=== PATIENT | male | born 1935 | race Caucasian/White ===

== ENCOUNTER 2020-08-29 13:24 | Observation (INO) | payer MEDICARE, OTHER ==
[~2020-08-29] VITALS: Ht 182.9 cm; Wt 64.6 kg
[~2020-08-29 13:24] MED LIST: ALBU8.5H6 IH; AMIT10TA PO; FINA5TAB4 PO; TIOT18CA IH
--- NOTE | 2020-08-29 13:59 | PHYS DOC ---
Past History Past Medical History: Cancer, COPD, Other Additional Past Medical Histor: LUNG CA STAGE 4 Past Surgical History: Other Additional Past Surgical Histo: HERNIA X 2, HEMORRHOID SURGERY X 2. Alcohol Use: Occasionally General Adult EDM: Chief Complaint: ABDOMINAL PAIN HPI: HPI: Patient is a 85-year-old male coming in for abdominal distention and constipation. Patient states he has not had a bowel movement in for 5 days. Saw his primary care provider for back pain yesterday and had x-rays done. He has multiple previous back injuries was also noted to be constipated. His primary care recommended [id number] laxatives and treatments. He states he has used magnesium citrate, a Fleet enema (that returned clear fluid), and mineral oil. No abd pain, no N/V. Multiple abd surgeries. Review of Systems: Review of Systems: All other systems within normal limits except for as noted in the HPI Allergies: Allergies: Allergies Coded Allergies Type Severity Reaction Last Updated Verified Penicillins Allergy Intermediate 08/29/20 Yes Physical Exam: PE: Constitutional: Well developed, well nourished, no acute distress, non-toxic appearance. [] HENT: Normocephalic, atraumatic, bilateral external ears normal, nose normal. [] Eyes: PERRLA, conjunctiva normal, no discharge. [] Neck: No rigidity, supple, no stridor. [] Cardiovascular: Regular rate and rhythm, brisk cap refill [] Lungs & Thorax: Non labored symmetric respirations, no tachypnea or respiratory distress [] Abdomen: Soft, nondistended, reducible ventral hernia. Skin: Warm, dry, no erythema, no rash. [] Back: Unremarkable Extremities: No deformities, range of motion grossly intact, no lower extremity edema [] Neurologic: Alert and oriented X 3, no focal deficits noted. [] Psychologic: Affect normal, judgement normal, mood normal. [] Current Patient Data: Vital Signs: Vital Signs Date Time Temp Pulse Resp B/P (MAP) Pulse Ox O2 Delivery O2 Flow Rate FiO2 08/29/20 13:43 97.9 96 18 121/93 (102) 93 Room Air EKG: EKG: Sinus rhythm, heart rate 82 bpm, right bundle branch block, no ST elevation depression, no ectopy. Normal axis. [] Radiology/Procedures: Radiology/Procedures: Exam: CT of abdomen and pelvis with contrast INDICATION: Abdominal distention TECHNIQUE: Sequential axial images through the abdomen and pelvis obtained following the administration of 60 mL of Omni 300 IV contrast. Sagittal and coronal reformatted images were reconstructed from the axial data and reviewed. Comparisons: None FINDINGS: Heart size is normal. Visualized lung bases are clear. No pleural effusion. Numerous cystic lesions noted in the liver parenchyma favored represent simple cysts. Spleen, pancreas, gallbladder and adrenals are unremarkable. Kidneys demonstrate symmetric enhancement. No ureteral calculi are identified. There is nonobstructing right renal calculi. There is a simple cyst at the mid left kidney measuring 9.4 cm. Bladder is distended and appears thin-walled. Prostate is not enlarged. Large amount of stool is noted throughout the colon. Small bowel is unremarkable. No free intra-abdominal air or fluid. No obstruction. Abdominal aorta has a normal course and caliber. Abdominal vasculature is patent. No enlarged intra-abdominal lymph nodes are identified. No suspicious osseous lesions or acute fractures. IMPRESSION: Large amount stool noted throughout the colon. Correlate for constipation. [] Heart Score: C/O Chest Pain: No Risk Factors: Risk Factors: DM, Current or recent (<one month) smoker, HTN, HLP, family history of CAD, obesity. Risk Scores: Score 0 - 3: 2.5% MACE over next 6 weeks - Discharge Home Score 4 - 6: 20.3% MACE over next 6 weeks - Admit for Clinical Observation Score 7 - 10: 72.7% MACE over next 6 weeks - Early Invasive Strategies Course & Med Decision Making: Course & Med Decision Making Pertinent Labs and Imaging studies reviewed. (See chart for details) Bladder distention, Navarrete placed at 800 cc out. We will use glycerin suppositories after Navarrete placed, because bladder appeared to be collapsing the rectum. Discussed with patient's primary care provider will admit for bowel cleanout and Navarrete management. Patient agrees to plan. [] Dragon Disclaimer: Dorota Disclaimer: This electronic medical record was generated, in whole or in part, using a voice recognition dictation system. Departure Departure: Impression: Primary Impression: Urinary retention Additional Impression: Constipation due to pain medication Disposition: ADMITTED INPT THIS HOSP Admitting Physician: Arcenio Mosqueda Condition: STABLE Referrals: ARCENIO MOSQUEDA MD (PCP) KIMANI NAVAS MD Aug 29, 2020 13:59
[2020-08-29 14:16] LABS: BASO % 0 % (0-3); EOS # 0.1 x10^3/uL (0.0-0.7); EOS % 1 % (0-3); HEMATOCRIT 34.8 % (39.0-53.0); HEMOGLOBIN 11.7 g/dL (13.0-17.5); LYMPH # 0.6 x10^3/uL (1.0-4.8); LYMPH % 6 % (24-48); MEAN CORPUSCULAR HEMOGLOBIN 34 pg (25-35); MEAN CORPUSCULAR HGB CONC 34 g/dL (31-37); MEAN CORPUSCULAR VOLUME 101 fL (79-100); MONO # 0.4 x10^3/uL (0.0-1.1); MONO % 5 % (0-9); NEUT # 8.3 x10^3uL (1.8-7.7); NEUT % 89 % (31-73); PLATELET COUNT 389 x10^3/uL (140-400); RED BLOOD COUNT 3.44 x10^6/uL (4.30-5.70); RED CELL DISTRIBUTION WIDTH 14.3 % (11.5-14.5); WHITE BLOOD COUNT 9.4 x10^3/uL (4.0-11.0)
[2020-08-29 14:30] LABS: BACTERIA,URINE 0 /HPF (0-FEW); BILIRUBIN,URINE NEG (NEG); CLARITY,URINE CLEAR; COLOR,URINE YELLOW; GLUCOSE,URINE NEG (NEG); HYALINE CASTS, URINE FEW /HPF; NITRITE,URINE NEG (NEG); SQUAMOUS EPITHELIAL CELL,UR OCC /LPF; UROBILINOGEN,URINE 0.2 mg/dL (0.2 mg/dL); WBC,URINE OCC /HPF (0-4)
[2020-08-29 14:43] LABS: ALBUMIN 3.1 g/dL (3.4-5.0); ALBUMIN/GLOBULIN RATIO 0.8 (1.0-1.7); CREATININE 1.5 mg/dL (0.7-1.3); GFR 44.7; MAGNESIUM 2.9 mg/dL (1.8-2.4); PHOSPHORUS 3.5 mg/dL (2.6-4.7); TOTAL BILIRUBIN 0.4 mg/dL (0.2-1.0); TOTAL PROTEIN 7.2 g/dL (6.4-8.2)
[2020-08-29 14:59] LABS: % EOS 1 % (0-5); % LYMPHS 7 % (24-48); % MONOS 4 % (0-10); % MYELOS 1 % (0-0); % SEGS 87 % (35-66); PLT ESTIMATE ADEQUATE (ADEQUATE)
[2020-08-29 15:01] LABS: POTASSIUM 4.9 mmol/L (3.5-5.1)
[2020-08-29] MEDS ORDERED: IOHEXOL 300 MG/ML 75 ML VIAL. IV ONE (15:15)
[2020-08-29] MEDS ORDERED: HALOPERIDOL LACT 5 MG/ML VIAL. IVP ONE (15:15)
[2020-08-29] MEDS ORDERED: diphenhydrAMINE 50 MG/ML VIAL IVP ONE (15:15)
[2020-08-29] MEDS ORDERED: IV NORMAL SALINE 500ML 500 ML IV ONE (15:15)
--- NOTE | 2020-08-29 16:06 | RAD ---
Exam: CT of abdomen and pelvis with contrast INDICATION: Abdominal distention TECHNIQUE: Sequential axial images through the abdomen and pelvis obtained following the administrati on of 60 mL of Omni 300 IV contrast. Sagittal and coronal reformatted images were reconstructed from the axial data and reviewed. Comparisons: None FINDINGS: Heart size is normal. Visualized lung bases are clear. No pleural effusion. Numerous cystic lesions noted in the liver parenchyma favored represent simple cysts. Spleen, pancrea s, gallbladder and adrenals are unremarkable. Kidneys demonstrate symmetric enhancement. No ureteral calculi are identified. There is nonobstructin g right renal calculi. There is a simple cyst at the mid left kidney measuring 9.4 cm. Bladder is distended and appears thin-walled. Prostate is not enlarged. Large amount of stool is noted throughout the colon. Small bowel is unremarkable. No free intra-abdom inal air or fluid. No obstruction. Abdominal aorta has a normal course and caliber. Abdominal vasculature is patent. No enlarged intra-abdominal lymph nodes are identified. No suspicious osseous lesions or acute fractures. IMPRESSION: Large amount stool noted throughout the colon. Correlate for constipation. Exposure: One or more of the following in the visualized dose reduction techniques were utilized for this examination: 1. Automated exposure control 2. Adjustment of the MA and/or KV according to patient size 3. Use of iterative of reconstructive technique Electronically signed by: Keanu Waddell MD (08/29/2020 4:03 PM) [facility]
[2020-08-29] MEDS ORDERED: GLYCERIN ADULT 1 SUPP.RECT. PR ONE (16:30)
[2020-08-29] MEDS ORDERED: ONDANSETRON PF 4 MG/2 ML VIAL. IVP PRN (16:30)
[2020-08-29] MEDS ORDERED: MORPHINE SULFATE 2 MG/ML DISP.SYRIN. IVP PRN (16:30)
[2020-08-29] MEDS ORDERED: ACETAMINOPHEN 325 MG TABLET PO PRN (16:30)
--- NOTE | 2020-08-29 16:30 | EKG ---
[address] [address] Test Date: 2020-08-29 Test Time: 14:55:49 Pat Name: YENY RIOS Department: Room: Gender: M Field Gauger: ALINE : 1935 Requested By: KIMANI NAVAS Order Number: [id number] Reading MD: Measurements Intervals [place] Rate: 82 P: [place]: QRS: 23 QRSD: 132 T: 39 QT: 396 QTc: 466 Interpretive Statements SINUS RHYTHM RIGHT BUNDLE BRANCH BLOCK ABNORMAL ECG RI6.02 No previous ECG available for comparison
[2020-08-29] MEDS ORDERED: LACTULOSE 20 GM/30 ML SOLUTION. PO ONE (17:15)
[2020-08-29 17:34] VITALS: BP 138/67
[2020-08-29] MEDS ORDERED: ALBUTEROL SULFATE 8GM INHALER. IH SCH (18:15)
[2020-08-29] MEDS ORDERED: ZOLPIDEM 5 MG TABLET. PO PRN (18:15)
[2020-08-29] MEDS ORDERED: ALBUTEROL SULFATE 2.5 MG/3 ML NEBU. NEB PRN (18:15)
[2020-08-29] MEDS ORDERED: DOCUSATE SODIUM 100 MG CAPSULE PO ONE (18:15)
[2020-08-29] MEDS ORDERED: BISACODYL 10 MG SUPP.RECT PR PRN (18:15)
[2020-08-29] MEDS ORDERED: TAMS0.4C97 PO (19:24)
[2020-08-29] MEDS ORDERED: VITA25006 PO (19:24)
[2020-08-29] MEDS ORDERED: PRED5TAB PO (19:24)
[2020-08-29] MEDS ORDERED: LEVO125T5 PO (19:24)
[2020-08-29] MEDS ORDERED: MIRT15TA3 PO (19:24)
[2020-08-29] MEDS ORDERED: ACET325T9 PO (19:24)
[2020-08-29] MEDS ORDERED: TRAM50TA PO (19:24)
[2020-08-29] MEDS ORDERED: ASCO500T4 PO (19:24)
[2020-08-29] MEDS ORDERED: MULT-154 PO (19:24)
[2020-08-29] MEDS ORDERED: FLUT1AER IH (19:24)
[2020-08-29] MEDS: DOCUSATE SODIUM 100 MG CAPSULE PO SCH (19:57)
[2020-08-29] MEDS ORDERED: IPRATRPIUM/ALBUTEROL 0.5/2.5MG 3 ML NEBU. NEB SCH (20:00)
[2020-08-29] MEDS ORDERED: NON FORMULARY ITEM (Tiotropium Bromide (Spiriva) 18 MCG) IH SCH (21:00)
[2020-08-29 22:22] VITALS: BP 118/68
[2020-08-30 05:44] VITALS: BP 124/70
[2020-08-30] MEDS ORDERED: FINASTERIDE 5 MG TABLET. PO SCH (09:00)
[2020-08-30] MEDS: DOCUSATE SODIUM 100 MG CAPSULE PO SCH (09:15)
[2020-08-30 11:19] VITALS: BP 126/68
--- NOTE | 2020-08-30 16:00 | HP ---
ADMIT DATE: HISTORY OF PRESENT ILLNESS: An 85-year-old gentleman came in with severe abdominal pain, has been having problems with constipation last 4-5 days prior to admission. The patient has some back pain and was noted to have a large amount of stool in his intestine. However, he was unable to pass and came in through the Emergency Room because of increased pain ____ referred to the ER. CT scan demonstrated the patient's bladder was markedly distended and probably causing some obstruction to the outlet of the colon. As a result of this, the patient had about 800 mL and still impacted with a great deal of stool. He was admitted for disimpaction and further evaluation of his other institutional problems including his urinary retention and constipation. PAST MEDICAL HISTORY: He is being treated for stage 4 lung cancer, he is on Keytruda every 3 weeks since 08/2020, hernia repairs, BPH, sees Dr. Raines; back pain, hypothyroidism, multiple skin cancers, influenza vaccination, pneumococcal vaccination, tonsillectomy, adenoidectomy. FAMILY HISTORY: Positive for heart disease, depression, congestive heart failure and stroke. ALLERGIES: ALLERGY TO PENICILLIN. HOME MEDICATIONS: Reviewed and include Flomax, Spiriva, tramadol, Tylenol, Remeron, fluticasone, prednisone, levothyroxine, vitamin D, multivitamins. SOCIAL HISTORY: The patient has had about a 30-40 pack-year history of smoking, quit few years ago. The patient has occasional alcohol use, but nothing significant. No hard drug use. REVIEW OF SYSTEMS: Otherwise, the patient denies any headaches, visual change, blurred vision, double vision. Denies chest pain, shortness of breath. Denies abdominal pain. Denies any melena, hematochezia or hematemesis and neurologically stable there. PHYSICAL EXAMINATION: GENERAL: This is a pleasant white male, well-developed, well-nourished, somewhat thin-appearing, in good spirits. VITAL SIGNS: Blood pressure 126/70, respiratory rate 18, pulse 87, afebrile. HEENT: The patient's head was atraumatic, normocephalic. Eyes: PERRLA without jaundice. LUNGS: The patient's lungs were diminished, but clear. CARDIOVASCULAR: Regular sinus rhythm. ABDOMEN: Soft, nontender, protuberant, but markedly improved since he has had a bowel movement. EXTREMITIES: No clubbing, cyanosis or edema. NEUROLOGIC: The patient is alert and oriented x 3. The patient's Navarrete catheter in place. LABORATORY DATA: The patient's labs, 132, 4.9, BUN and creatinine 28 and 1.5, glucose 133. Cardiac enzymes negative. Lipase negative. Moderate protein malnutrition. Hemoglobin 11.7, hematocrit 34, MCV of 101. Urine was clear. EKG unremarkable. CT scan as indicated demonstrated a large amount of stool with that of a bladder distended. Prostate is not enlarged. IMPRESSION: Urinary retention, fecal impaction, abdominal pain, history of lung cancer stage 4. The patient was admitted and Navarrete catheter placed. He defervesced over 800 mL of urine and we will keep the Navarrete catheter until he sees Dr. Raines in a few weeks. The patient otherwise continued to be monitored as an outpatient and make further evaluation. He will be on a high fiber diet, decreased activity, and return to clinic in 7-10 days or sooner as needed. ERIN BRISCOE MD DR: SARAH/melva JOB#: [id number] / [id number]
== END 2020-08-30 13:52 | disposition home or self-care (01) ==
LOC: ER 13:24 → 1 SOUTH 16:24 → INTOOBSV 16:24 → ER 17:15
PROVIDERS: ADMIT Family Medicine; ATTEND Family Medicine
DX: K56.41 Fecal impaction (principal); I11.0 Hypertensive heart disease with heart failure; I50.9 Heart failure, unspecified; E11.9 Type 2 diabetes mellitus without complications; E78.5 Hyperlipidemia, unspecified; J44.9 Chronic obstructive pulmonary disease, unspecified; N32.89 Other specified disorders of bladder; R33.8 Other retention of urine; N40.1 Benign prostatic hyperplasia with lower urinary tract symptoms; E03.9 Hypothyroidism, unspecified; Z85.118 Personal history of other malignant neoplasm of bronchus and lung; Z85.828 Personal history of other malignant neoplasm of skin; Z87.891 Personal history of nicotine dependence; Z98.890 Other specified postprocedural states; Z90.49 Acquired absence of other specified parts of digestive tract
CPT/HCPCS: 36415; 51702; 74177; 80053; 81001; 83605; 83690; 83735; 84100; 84484; 85007; 85025; 93005; 96361; 96374; 99285; G0378; J2405; J7040; Q9967; 96360; G0379